=== PATIENT | male | born 1965 | race Hispanic/Latino ===

== ENCOUNTER 2021-02-05 10:24 | Day surgery (SDC) | payer BC ==
[2021-01-30 12:43] LABS: BASOPHILS % (AUTO) 0.5 % (0.0-5.0); EOSINOPHILS % (AUTO) 1.6 % (0.0-8.0); LYMPHOCYTES % (AUTO) 35.8 % (21.0-51.0); MEAN CORPUSCULAR HEMOGLOBIN 31.3 pg (27.0-33.0); MEAN CORPUSCULAR HGB CONC 34.1 g/dL (32.0-36.0); MEAN CORPUSCULAR VOLUME 91.8 fL (79-99); NEUTROPHILS % (AUTO) 53.7 % (40.0-77.0); PLATELET COUNT (AUTO) 192 K/uL (130-400); RED BLOOD CELL COUNT(AUTO) 5.01 MIL/uL (4.50-6.20); RED CELL DISTRIBUTION WIDTH 11.9 % (11.0-15.5); WHITE BLOOD COUNT (AUTO) 8.1 K/uL (4.8-10.8)
[2021-01-30 13:04] LABS: INR 1.05 (0.85-1.15); PROTHROMBIN TIME 11.4 SEC (9.6-11.6)
[2021-01-30 13:05] LABS: PARTIAL THROMBOPLASTIN TIME 27.9 SEC (26.3-35.5)
[2021-02-04 09:09] VITALS: BP 116/75
[2021-02-05] VITALS (15 sets, daily range): BP systolic 111–136; BP diastolic 63–82
[~2021-02-05] VITALS: Ht 177.8 cm; Wt 82.6 kg
[2021-02-05] MEDS: CEFAZOLIN SODIUM 1 GM VIAL IVP ONE ×2 (10:30→13:45)
[2021-02-05] MEDS ORDERED: CEFAZOLIN SODIUM 1 GM VIAL ONE ×2 (10:32→13:25)
[2021-02-05] MEDS ORDERED: LACTATED RINGERS 1000ML 1,000 ML IV ONE (10:32)
[2021-02-05] MEDS ORDERED: BUPIVACAINE/PF 0.25% 30ML VIAL IJ ONE (13:25)
[2021-02-05] MEDS ORDERED: BACITRACIN 28.4 GM OINT TP ONE (13:25)
[2021-02-05] MEDS ORDERED: PROPOFOL 10 MG/ML 20ML VIAL IV ONE (13:36)
[2021-02-05] MEDS ORDERED: LIDOCAINE PF 100MG/5ML (2%) SYRINGE 5ML ONE (13:36)
[2021-02-05] MEDS ORDERED: FENTANYL CITRATE PF 50 MCG/1 ML 2ML VIAL ONE (13:36)
== END 2021-02-05 16:15 | disposition home or self-care (01) ==
LOC: DAH 10:24
PROVIDERS: ATTEND Urology
DX: N48.1 Balanitis (principal); Z20.822 Contact with and (suspected) exposure to COVID-19; E78.5 Hyperlipidemia, unspecified; M19.90 Unspecified osteoarthritis, unspecified site; Z98.890 Other specified postprocedural states; Z79.01 Long term (current) use of anticoagulants
CPT/HCPCS: 36415; 54161; 80048; 85025; 85610; 85730; 93005; A4215; A4221; A4222; A4223; A4600; A4606; A4663; A4930; A6260; C9803; J0690 ×2; J2001; J2704; J3010; J3490; J7120 ×2; U0003

== ENCOUNTER 2022-06-26 22:38 | Emergency (ER) | payer BC ==
[~2022-06-26] VITALS: Ht 175.3 cm; Wt 81.6 kg
[2022-06-26 23:09] LABS: BASOPHILS % (AUTO) 0.6 % (0.0-5.0); HEMATOCRIT 47.6 % (42-54); LYMPHOCYTES % (AUTO) 38.9 % (21.0-51.0); MEAN CORPUSCULAR HEMOGLOBIN 32.7 pg (27.0-33.0); MEAN CORPUSCULAR HGB CONC 35.3 g/dL (32.0-36.0); MEAN CORPUSCULAR VOLUME 92.6 fL (79-99); MONOCYTES % (AUTO) 8.3 % (3.0-13.0); NEUTROPHILS % (AUTO) 49.9 % (40.0-77.0); PLATELET COUNT (AUTO) 206 K/uL (130-400); RED BLOOD CELL COUNT(AUTO) 5.14 MIL/uL (4.50-6.20); RED CELL DISTRIBUTION WIDTH 11.9 % (11.0-15.5); WHITE BLOOD COUNT (AUTO) 10.7 K/uL (4.8-10.8)
[2022-06-26 23:16] LABS: AMPHET/METH SCREEN,URINE NEGATIVE (NEGATIVE); BARBITURATE SCREEN, URINE NEGATIVE (NEGATIVE); BENZODIAZEPINES SCREEN,URINE NEGATIVE (NEGATIVE); CANNABINOID SCREEN,URINE NEGATIVE (NEGATIVE); COCAINE SCREEN,URINE NEGATIVE (NEGATIVE); OPIATE SCREEN,URINE NEGATIVE (NEGATIVE); PHENCYCLIDINE SCREEN,URINE NEGATIVE (NEGATIVE)
[2022-06-26 23:21] LABS: CREATININE 1.1 mg/dL (0.5-1.5)
[2022-06-26 23:25] LABS: ALBUMIN 4.2 g/dL (3.5-5.0)
[2022-06-26 23:26] LABS: APPEARANCE,URINE CLEAR (CLEAR); BILIRUBIN,URINE NEGATIVE (NEGATIVE); COLOR,URINE LIGHT-YELLOW (YELLOW); GLUCOSE, URINE (UA) NEGATIVE (NEGATIVE); KETONES,URINE NEGATIVE (NEGATIVE); LEUKOCYTE ESTERASE ,URINE NEGATIVE Leu/uL (NEGATIVE); NITRATE,URINE NEGATIVE (NEGATIVE); OCCULT BLOOD,URINE NEGATIVE (NEGATIVE); PH,URINE 6.5 (5.0-8.0); PROTEIN,URINE NEGATIVE (NEGATIVE)
[2022-06-27] MEDS ORDERED: METOCLOPRAMIDE 10 MG/2 ML VIAL IVP ONE (01:30)
[2022-06-27] MEDS ORDERED: DiphenhydrAMINE HCL 50 MG/ML VIAL IV ONE (01:30)
[2022-06-27] MEDS ORDERED: KETOROLAC 30MG VIAL (30MG/ML) IVP ONE (01:30)
[2022-06-27 01:38] VITALS: BP 102/66
[2022-06-27] MEDS ORDERED: IBUP-1493 PO (02:08)
[2022-06-27] MEDS ORDERED: CYCL-309 PO (02:08)
== END 2022-06-27 02:23 | disposition home or self-care (01) ==
LOC: EDH 22:38
DX: G43.909 Migraine, unspecified, not intractable, without status migrainosus (principal); E11.9 Type 2 diabetes mellitus without complications; Z98.890 Other specified postprocedural states
CPT/HCPCS: 99284; 70450; 80053; 80305; 85025; 85651; 36415 ×2; 81003; 96374; 96375; J1200; J1885; J2765